=== PATIENT | male | born 1960 | race Caucasian/White ===

== ENCOUNTER 2016-12-09 23:52 | Emergency (ER) | payer MEDICAID ==
[~2016-12-09 23:52] MED LIST: ATIVAN2 MG PO; BUSPAR5 MG; COL100 PO; EFFEXOR-XR75 MG PO; THO50; VIS25 PO; ZES20 PO
[2016-12-10 00:45] LABS: BASOPHIL % 0.5 % (0-2); PLATELET COUNT 258 x10^3mcL (130-400); RED CELL DISTRIBUTION WIDTH 13.1 % (11.5-14.5)
[2016-12-10 00:57] LABS: CARBON DIOXIDE 29.9 mmol/L (21-32); CHLORIDE SERUM 103 mmol/L (98-107); CREATININE SERUM 0.7 mg/dL (0.7-1.3); GFR1 > 60 mL/min; GLUCOSE SERUM 118 mg/dL (74-106); SODIUM SERUM 138 mmol/L (136-145)
[2016-12-10 01:02] LABS: ALBUMIN 3.7 g/dL (3.4-5.0); ALKALINE PHOSPHATASE 137 U/L (46-116); ALT/SGPT 25 U/L (16-63); AST/SGOT 21 U/L (15-37); BILIRUBIN TOTAL 0.2 mg/dL (0.20-1.00); LIPASE 244 IU/L (73-393); TOTAL PROTEIN, SERUM 7.3 g/dL (6.4-8.2)
[2016-12-10 01:14] LABS: microscopic required? NO
[2016-12-10 01:23] LABS: urine erythrocyte NEGATIVE (NEGATIVE)
[2016-12-10 01:47] LABS: AMPHETAMINE QUAL UR POSITIVE (NEG <=1000)
[2016-12-10 04:11] VITALS: BP 139/79
== END 2016-12-10 04:11 | disposition home or self-care (01) ==
LOC: ED 23:52
PROVIDERS: Emergency Medicine
DX: K86.9 Disease of pancreas, unspecified (principal); K59.00 Constipation, unspecified; I10 Essential (primary) hypertension; E11.9 Type 2 diabetes mellitus without complications; R19.7 Diarrhea, unspecified; F15.10 Other stimulant abuse, uncomplicated; Z79.899 Other long term (current) drug therapy
CPT/HCPCS: 80307; J2270; J7030

== ENCOUNTER 2016-12-14 15:46 | Emergency (ER) | payer MEDICAID ==
[2016-12-14 16:43] VITALS: BP 136/89
[2016-12-14 16:53] LABS: BASOPHIL % 0.3 % (0-2); PLATELET COUNT 261 x10^3mcL (130-400); RED CELL DISTRIBUTION WIDTH 13.2 % (11.5-14.5)
[2016-12-14 17:10] LABS: CALCIUM 9.1 mg/dL (8.5-10.1); CARBON DIOXIDE 27.9 mmol/L (21-32); CHLORIDE SERUM 103 mmol/L (98-107); CREATININE SERUM 0.7 mg/dL (0.7-1.3); GFR1 > 60 mL/min; GLUCOSE SERUM 128 mg/dL (74-106); POTASSIUM SERUM 4.3 mmol/L (3.5-5.1); SODIUM SERUM 137 mmol/L (136-145)
[2016-12-14 17:12] LABS: ALKALINE PHOSPHATASE 138 U/L (46-116); ALT/SGPT 28 U/L (16-63); AST/SGOT 20 U/L (15-37); BILIRUBIN TOTAL 0.36 mg/dL (0.20-1.00); LIPASE 97 IU/L (73-393)
== END 2016-12-14 18:15 | disposition home or self-care (01) ==
LOC: ED 15:46
PROVIDERS: Emergency Medicine
DX: K29.70 Gastritis, unspecified, without bleeding (principal); F20.9 Schizophrenia, unspecified; F41.9 Anxiety disorder, unspecified; F32.9 Major depressive disorder, single episode, unspecified; I10 Essential (primary) hypertension; F15.10 Other stimulant abuse, uncomplicated
CPT/HCPCS: 83880; Q0092

== ENCOUNTER 2016-12-18 22:04 | Emergency (ER) | payer MEDICAID ==
[2016-12-18 22:47] LABS: BASOPHIL % 0.5 % (0-2); PLATELET COUNT 181 x10^3mcL (130-400); RED CELL DISTRIBUTION WIDTH 12.7 % (11.5-14.5)
[2016-12-18 23:01] LABS: CALCIUM 9.2 mg/dL (8.5-10.1); CARBON DIOXIDE 26.1 mmol/L (21-32); CHLORIDE SERUM 103 mmol/L (98-107); CREATININE SERUM 0.8 mg/dL (0.7-1.3); GFR1 > 60 mL/min; GLUCOSE SERUM 177 mg/dL (74-106); POTASSIUM SERUM 3.3 mmol/L (3.5-5.1); SODIUM SERUM 138 mmol/L (136-145)
[2016-12-18 23:34] LABS: AMPHETAMINE QUAL UR POSITIVE (NEG <=1000)
[2016-12-19 01:04] VITALS: BP 113/65
== END 2016-12-19 01:04 | disposition home or self-care (01) ==
LOC: ED 22:04
PROVIDERS: Emergency Medicine
DX: M79.1 Myalgia (principal); F15.10 Other stimulant abuse, uncomplicated; G82.20 Paraplegia, unspecified; B19.20 Unspecified viral hepatitis C without hepatic coma
CPT/HCPCS: 80307; G0480; J1885; J7030

== ENCOUNTER 2017-01-17 15:02 | Emergency (ER) | payer MEDICAID ==
[~2017-01-17] VITALS: Ht 177.8 cm; Wt 90.7 kg
[2017-01-17 16:07] VITALS: BP 129/65
== END 2017-01-17 19:00 | disposition home or self-care (01) ==
LOC: ED 15:02
DX: Z00.01 Encounter for general adult medical examination with abnormal findings (principal); F41.9 Anxiety disorder, unspecified; Z79.899 Other long term (current) drug therapy

== ENCOUNTER 2017-02-16 13:41 | Emergency (ER) | payer MEDICAID ==
[~2017-02-16] VITALS: Ht 175.3 cm; Wt 81.6 kg
[2017-02-16 14:57] LABS: BASOPHIL % 1.5 % (0-2); PLATELET COUNT 263 x10^3mcL (130-400); RED CELL DISTRIBUTION WIDTH 12.1 % (11.5-14.5)
[2017-02-16 15:12] LABS: CALCIUM 9.4 mg/dL (8.5-10.1); CARBON DIOXIDE 24.2 mmol/L (21-32); CHLORIDE SERUM 102 mmol/L (98-107); CREATININE SERUM 0.7 mg/dL (0.7-1.3); GFR1 > 60 mL/min; GLUCOSE SERUM 120 mg/dL (74-106); POTASSIUM SERUM 4.2 mmol/L (3.5-5.1); SODIUM SERUM 138 mmol/L (136-145)
[2017-02-16 15:16] LABS: ALBUMIN 3.8 g/dL (3.4-5.0); ALKALINE PHOSPHATASE 138 U/L (46-116); ALT/SGPT 47 U/L (16-63); AST/SGOT 53 U/L (15-37); BILIRUBIN TOTAL 0.28 mg/dL (0.20-1.00); TOTAL PROTEIN, SERUM 8.2 g/dL (6.4-8.2)
[2017-02-16 16:24] LABS: AMPHETAMINE QUAL UR NONE DETECTED (NEG <=1000)
[2017-02-16 16:42] VITALS: BP 136/58
== END 2017-02-16 16:42 | disposition home or self-care (01) ==
LOC: ED 13:41
PROVIDERS: Emergency Medicine
DX: T42.6X1A Poisoning by other antiepileptic and sedative-hypnotic drugs, accidental (unintentional), initial encounter (principal); B19.20 Unspecified viral hepatitis C without hepatic coma; F15.10 Other stimulant abuse, uncomplicated; F20.9 Schizophrenia, unspecified; Y92.89 Other specified places as the place of occurrence of the external cause
CPT/HCPCS: 36415; G0480

== ENCOUNTER 2017-04-27 02:37 | Inpatient (IN) | payer MEDICAID ==
[~2017-04-27] VITALS: Ht 175.3 cm; Wt 81.7 kg
--- NOTE | 2017-04-27 06:25 | NUR ---
RECEIVED PATIENT FROM ED VIA GUERSILVIO, PATIENT A/O X 1, IV ACCESS TO LFA WNL, ORIENTED PATIENT TO ROOM AND SURROUNDINGS, BED IN LOW POSITION, BED RAILS UP X 2, CALL LIGHT WITHIN REACH, WILL CONTINUE TO MONITOR
[2017-04-27 10:13] VITALS: BP 140/75
--- NOTE | 2017-04-27 10:39 | NUR ---
PT RECEIVED FROM WILDA DENTON, WILL ASSUME CARE OF PT.
--- NOTE | 2017-04-27 11:31 | NUR ---
PT ENDORSED TO [place].
--- NOTE | 2017-04-27 12:21 | NUR ---
IV ACCESS OBSTRUCTED TO LAC. IV RESTARTED TO RFA #20 PT TOLERATED PROCEDURE WELL.
--- NOTE | 2017-04-27 12:36 | NUR ---
PT C/O AGITATION MEDICATED PER EMAR. PT TOLERATED WELL. WILL CONTINUE TO MONITOR.
--- NOTE | 2017-04-27 12:38 | NUR ---
PT TRANSFERRED FROM RM 220 TO [id number]. WILL CONTINUE TO MONITOR.
--- NOTE | 2017-04-27 13:20 | NUR ---
LAC IV CATHETER REMOVED. CATHETER INTACT.
[2017-04-27 14:10] LABS: T3 TOTAL 1.61 ng/mL
[2017-04-27 14:21] LABS: UA SPECIFIC GRAVITY 1.015 (1.005-1.035)
[2017-04-27 14:22] LABS: microscopic required? YES
[2017-04-27 14:23] LABS: urine erythrocyte TRACE (NEGATIVE)
[2017-04-27 14:31] LABS: AMPHETAMINE QUAL UR POSITIVE (NEG <=1000)
[2017-04-27 14:34] LABS: CARBON DIOXIDE 22 mmol/L (21-32); CHLORIDE SERUM 106 mmol/L (98-107); CREATININE SERUM 0.8 mg/dL (0.7-1.3); GFR1 > 60 mL/min; GLUCOSE SERUM 124 mg/dL (74-106); POTASSIUM SERUM 3.3 mmol/L (3.5-5.1); SODIUM SERUM 140 mmol/L (136-145); TOTAL PROTEIN, SERUM 7.4 g/dL (6.4-8.2)
[2017-04-27 14:35] LABS: ALBUMIN 3.5 g/dL (3.4-5.0); ALT/SGPT 27 U/L (16-63); AST/SGOT 21 U/L (15-37); BILIRUBIN DIRECT 0.08 mg/dL (0.0-0.2); CALCIUM 8.9 mg/dL (8.5-10.1)
[2017-04-27 14:36] LABS: ALKALINE PHOSPHATASE 119 U/L (46-116)
[2017-04-27 14:39] LABS: RED CELL DISTRIBUTION WIDTH 14.6 % (11.5-14.5)
[2017-04-27 14:40] LABS: BASOPHIL % 0.6 % (0-2); PLATELET COUNT 270 x10^3mcL (130-400)
[2017-04-27 14:42] LABS: FREE T4 1.14 ng/dL (0.76-1.46); FREE THYROXINE INDEX 2.8 ug/dL (1.4-4.5); T4(THYROXINE) 7.9 ug/dL (4.7-13.3)
--- NOTE | 2017-04-27 18:00 | NUR ---
PT C/O NECK PAIN AND PAIN AT ARMS, PT STATES FEELING CONFUSED, PT ORIENTED TO PERSON, PLACE, , REASON FOR VISIT. MEDICATED PER EMAR. PT TOLERATED WELL. CALL LIGHT WITHIN REACH.
[2017-04-27 18:02] VITALS: BP 121/64
--- NOTE | 2017-04-27 19:40 | NUR ---
PT RESTING IN BED WITH EYES CLOSED. AROUSED WHEN WITH VERBAL AND TACTILE STIMULI. AOX4. VERBAL WITH SLIGHTLY SLURRED SPEECH. NO S/S OF RESPIRATORY DISTRESS NOTED. ON ROOM AIR. LUNGS CLEAR BILATERALLY. ON TELE 23, NSR. ABD SOFT AND FLAT. BOWEL SOUNDS ACTIVE. IV TO RIGHT FA PATENT AND INTACT. IV NS INFUSING WELL. NO S/S OF INFECTION NOTED. RESTING WITH RELAXED FACIAL FEATURES. CALL LIGHT WITHIN REACH. WILL CONTINUE TO MONITOR.
[2017-04-27 21:07] VITALS: BP 116/69
--- NOTE | 2017-04-28 01:00 | NUR ---
PT RESTING IN BED WITH EYES CLOSED. BREATHING EQUAL AND UNLABORED. NO S/S OF RESPIRATORY DISTRESS NOTED. IV PATENT AND INFUSING WELL. NO AGITATION OR BEHAVIORS NOTED AT THIS TIME. RESTING WITH RELAXED FACIAL FEATURES. CALL LIGHT WITHIN REACH. WILL CONTINUE TO MONITOR.
[2017-04-28 05:15] VITALS: BP 104/65
--- NOTE | 2017-04-28 06:00 | NUR ---
PT SLEPT WELL THROUGH THE NIGHT. APPEARS DROWSY, BUT AROUSABLE. RECEIVED ROUTINE ATIVAN 1 MG PO. NO S/S OF DISTRESS NOTED AT THIS TIME. IV PATENT AND INFUSING WELL. CALL LIGHT WITHIN REACH. WILL CONTINUE TO MONITOR.
[2017-04-28 06:33] LABS: BASOPHIL % 0.7 % (0-2); PLATELET COUNT 269 x10^3mcL (130-400)
[2017-04-28 06:40] LABS: CALCIUM 8.8 mg/dL (8.5-10.1); CARBON DIOXIDE 22.7 mmol/L (21-32); CHLORIDE SERUM 106 mmol/L (98-107); CREATININE SERUM 0.6 mg/dL (0.7-1.3); GFR1 > 60 mL/min; GLUCOSE SERUM 103 mg/dL (74-106); MAGNESIUM 2.3 mg/dL (1.8-2.4); PHOSPHOROUS 3.5 mg/dL (2.5-4.9); POTASSIUM SERUM 3.8 mmol/L (3.5-5.1); SODIUM SERUM 137 mmol/L (136-145)
[2017-04-28 06:44] LABS: RED CELL DISTRIBUTION WIDTH 14.7 % (11.5-14.5)
--- NOTE | 2017-04-28 08:00 | NUR ---
PATIENT RECEIVED SLEEPING AT THIS TIME. LUNGS ARE DIMINISHED BUT CLEAR AND NOTED HISTORY OF SMOKING BUT NO COUGH OR RALES HEARD. PATIENT AHS BEEN ON BEDREST AND NTOED PARAPLEGIC AND HAS A WHEELCHAIR IN THE RESTROOM FROM HOME. VITALS AT THIS TIME AT 97.5, 75, 20, 104/65, 98%. WILL CONTINUE TO MONITOR IDNICATED. PATIENT HAS BEEN SLEEPING BUT IS ARROUSABLE.
--- NOTE | 2017-04-28 09:30 | NUR ---
SEEN BY THE INTERNS AND RESIDENT AND PLAN OF CARE DISCUSSED. ONE TO ONE SITTER AT BEDSIDE AND PATIENT HAS BEEN SO FAR COOPERATIVE WITH CARE. PATIENT THOUGH REFUSED BATHING OR CHANGING OF LINENS DISPITE SOILING SEVERAL TIME TODAY AND LAST NIGHT. PATIENT HAS BEEN SLEEPING MOST OF THE TIME ON THIS SHIFT.
[2017-04-28 10:57] VITALS: BP 105/67
--- NOTE | 2017-04-28 11:59 | NUR ---
GAVE MORPHINE FOR PAIN ADN THE PAITENT INDICATED HE DOES NOT FEEL IT YET AND WAS JUST GIVEN. PATIEN TAS SEEN BY THE INTERNS AND THE FACILITIES ASSISTANT REQUESTED TO GVIEN TYLNENOL FOR THE HEADACHE. WHEN OFFERED THE PATIENT REFUSED. WILL CONTINUE TO MONITOR INDICATED.
--- NOTE | 2017-04-28 12:31 | NUR ---
BLOOD SUGAR AT THIS TIME AT 110. PATIENT AGAIN REFUSED THE TYLENOL WHEN OFFERED. "I DOESN'T DO ANYTHING."
--- NOTE | 2017-04-28 13:37 | NUR ---
TOOK THE BLOOD SUGAR AND OFFERED AGAIN THE TYLENOL AND THE LACTINEX AND HE REFUSED BOTH AT THIS TIME. DID THOUGH APPLY THE NICODERM PATCH. PATIENT JUST MUBBLED AND TURNED OVER AND WENT BACK TO SLEEP. DOES NOT APPEAR TO BE IN ANY PAITN AT THIS TIME.
[2017-04-28 14:10] VITALS: BP 104/64
--- NOTE | 2017-04-28 15:01 | NUR ---
PATIENT GIVEN P0 ATIVAN AND IV MORPHINE ORDERED. PATIENT DENIES PULLING OUT HIS IV THE NURSE WAS INFORMED BY THE SUPERVISOR COIN MACHINE. PATIENT HAS AN IV THAT IS FLUSHING WELL AND NO SIGNS OF INFILTRATE NOTED. PATIENT IS ANXIOUS AND AGITATED AT TIME AND STATES HE DID NOT WANT TYLENOL FOR HEADACHE IT IS MORE THAN THAT AND THERE IS PAIN TO THE SHOULDERS AND WELL. PATIETN AND NURSE DISCUSSED PLAN OF CARE AND PATIENT IS CALM AND COOPERATIVE AT THIS TIME.
--- NOTE | 2017-04-28 19:40 | NUR ---
RECEIVED REPORT FROM DAY SHIFT RN. PT SITTING UP IN BED. IV ON RFA, NS INFUSING. C/O BACK, NECK, HIP PAIN. WILL MEDICATE PER ORDER. DEPRESSED MOOD AND SLURRED SPEECH. PT REPORTS THOUGHTS OF HURTING HIMSELF. ON 5150 HOLD AT THIS TIME. SITTER AT BEDSIDE. SIDE RAIL PADS IN PLACE. MOTHER AT BEDSIDE.
[2017-04-28 23:13] VITALS: BP 92/51
[2017-04-29 06:14] VITALS: BP 122/75
[2017-04-29 06:17] VITALS: BP 97/45
--- NOTE | 2017-04-29 07:00 | NUR ---
PT SLEPT AT LONG INTERVALS DURING SHIFT. C/O BACK/NECK/HIPS PAIN X3, MEDICATED WITH MORPHINE. SCHEDULED ATIVAN GIVEN PER ORDER. SAFETY MEASURES MAINTAINED. SITTER AT BEDSIDE. WILL ENDORSE CONTINUITY OF CARE TO ONCOMING RN.
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
[2017-04-29 11:11] VITALS: BP 99/59
--- NOTE | 2017-04-29 11:30 | NUR ---
REQUESTED PAIN MEDICATION AND GAVE MORPHINE ORDERED. PATIENT IS SLEEPING MOST OF THE SHIFT AND AWAKE TO REQUEST PAIN MEDICATION FOR THE SHOULDERS AND BACK.
--- NOTE | 2017-04-29 15:00 | NUR ---
BLOOD SUGAR AT LUNCH IS WNL AND PATIENT RECIEVED THE MORPHINE AND EFFECTIVE AT THIS TIME. WILL CONTINUE TO MONITOR.
--- NOTE | 2017-04-29 16:30 | NUR ---
GAVE MORPHINE ORDERED FOR PAIN. ONE TO ONE AT BEDSIDE AND PATIENT IS NOT AGRESS OR DELUSIONAL AT THIS TIME. HE HAS BEEN COOPERATIVE SO FAR TODAY.
--- NOTE | 2017-04-29 19:28 | NUR ---
PATIENT GIVEN MORPHINE FOR PAIN PER REQUEST FOR PAIN TO THE SHOULDERS AND BACK. PATIENT HAS CONTINUED ON ONE TO ONE SITTER FOR 5150 DIAGNOSIS.
--- NOTE | 2017-04-29 19:40 | NUR ---
RECEIVED REPORT FROM DAY SHIFT RN. PT RESTING WITH EYES CLOSED. NO DISTRESS NOTED. IV ON RFA, NS INFUSING. BED IN LOWEST POSITION. SIDE RAIL PADS IN PLACE. GARBLED SPEECH. DEPRESSED MOOD. ON 5150 HOLD AT THIS TIME. SITTER AT BEDSIDE.
[2017-04-29 20:31] VITALS: BP 122/71
[2017-04-30 05:22] VITALS: BP 122/71
--- NOTE | 2017-04-30 06:33 | NUR ---
PT SLEPT ON AND OFF DURING SHIFT. C/O NECK AND HIP PAIN X3. MORPHINE GIVEN. SAFETY MEASURES MAINTAINED. ALL NEEDS ATTENDED TO. SITTER AT BEDSIDE. WILL ENDORSE CONINUITY OF CARE TO ONCOMING RN.
[2017-04-30 10:01] VITALS: BP 114/71
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
--- NOTE | 2017-04-30 10:25 | NUR ---
SEEN BY THE INTERNS AND PLAN IS FOR REEVALUATION OF THE PATIENT FOR 5150 AND THEN POSSIBLE DISCHARGE PLAN IF HE MEETS THE CRITERIA FOR SAFETY.
[2017-04-30 13:10] VITALS: BP 115/71
--- NOTE | 2017-04-30 14:13 | NUR ---
IV LEAKING AND WILL RESTART INDICATE.D PATIEN HAD GOOD RELIEF FROM THE MORPHINE GIVEN. FOR ROCEPHIN ORDERED.
--- NOTE | 2017-04-30 14:44 | NUR ---
SEEN BY THE [facility] DOCTOR AND PATIENT PER THE DOCTOR IS REFUSING TO DISCUSS WITH HER HIS ISSUES. PATIENT HAD IV MORPHINE GIVEN POST RESTART OF THE PERVIOUS IV DUE TO LEAKING. PATIENT HAS HAD HIS MOTHER AT BEDSIDE AND DID NOT SHOW THIS STAFF AGITATION BUT PER THE PSYCH DOCTOR HE BECAME AGITATED WITH HER QUESTIONING. WILL CONTINUE TO MONITOR BUT DID PER THE DR STATE HE CAN NOT [place] NOT TO HARM HIMSELF IF DISCHARGED TO HOME TODAY.
--- NOTE | 2017-04-30 17:44 | NUR ---
GAVE PAIN MEDICATION ORDERED AND BLOOD SUGAR AT 127 AND NO COVERAGE INDICATED.
--- NOTE | 2017-04-30 19:40 | NUR ---
RECEIVED REPORT FROM DAY SHIFT RN. PT SITTING UP IN BED. IV ON LEFT WRIST, NS INFUSING. PT DENIES HAVING HALLUCINATIONS. PT DENIES HAVING THOUGHTS OF HARMING SELF OR OTHERS. NO DISTRESS NOTED AT THIS TIME. PT TOLERATING TRANSFER FROM BED TO BEDSIDE COMMODE. SAFETY MEASURES IN PLACE. BED IN LOWEST POSITION. SIDE RAIL PADS IN PLACE. SITTER AT BEDSIDE.
[2017-04-30 20:52] VITALS: BP 116/70
[2017-05-01 05:37] VITALS: BP 103/65
[2017-05-01 06:41] LABS: BASOPHIL % 0.5 % (0-2); CALCIUM 8.8 mg/dL (8.5-10.1); CARBON DIOXIDE 21.6 mmol/L (21-32); CHLORIDE SERUM 106 mmol/L (98-107); CREATININE SERUM 0.7 mg/dL (0.7-1.3); GFR1 > 60 mL/min; GLUCOSE SERUM 114 mg/dL (74-106); PLATELET COUNT 243 x10^3mcL (130-400); POTASSIUM SERUM 3.7 mmol/L (3.5-5.1); SODIUM SERUM 139 mmol/L (136-145)
[2017-05-01 06:52] LABS: RED CELL DISTRIBUTION WIDTH 14.6 % (11.5-14.5)
--- NOTE | 2017-05-01 06:57 | NUR ---
PT SLEPT AT LONG INTERVALS DURING SHIFT. C/O NECK AND HIP PAIN X3, MORPHINE GIVEN. SAFETY MEASURES MAINTAINED. SITTER AT BEDSIDE.
--- NOTE | 2017-05-01 07:58 | NUR ---
PT RECEIVED DURING CHANGE OF SHIFT, ASLEEP BUT AROUSABLE, REPORTS OF SLURRED SPEECH, TELE 23, NSR, PULSES PRESENT, NO EDEMA, LUNGS CTA ON RA, BREATHING EVEN AND UNLABORED, BOWEL SOUNDS ACTIVE, BEDSIDE COMMODE, ABLE TO VOID, GENERALIZED WEAKNESS, PARAPLEGIC, SKIN WARM DRY INTACT, NO INDICATION OF PAIN AT THIS TIME, IV TO LT WRIST INFUSING NS AT 42ML/HR, CALL LIGHT WITHIN REACH, WAREHOUSE EXAMINER AT BEDSIDE, WILL CONTINUE TO MONITOR.
--- NOTE | 2017-05-01 08:57 | NUR ---
ASLEEP, NO INDICATION OF PAIN, BREATHING EVEN AND UNLABORED, CALL LIGHT WITHIN REACH, DEFECT CUTTER PAT AT BEDSIDE TO ASSIST WITH ADL'S, WILL CONTINUE TO MONITOR.
[2017-05-01 09:30] VITALS: BP 113/70
--- NOTE | 2017-05-01 10:22 | NUR ---
PT ASLEEP, NO INDICATION OF PAIN, BREATHING EVEN AND UNLABORED, DIRECTOR OF PLAYER PERSONNEL AT BEDSIDE TO ASSIST WITH ADL'S, CALL LIGHT WITHIN REACH, WILL CONTINUE TO MONITOR.
--- NOTE | 2017-05-01 11:16 | NUR ---
PT ASLEEP BUT AROUSABLE, DENIES SOB, DENIES PAIN, PLASTIC MOLDER AT BEDSIDE TO ASSIST WITH ADL'S, CALL LIGHT WITHIN REACH, WILL CONTINUE TO MONITOR.
--- NOTE | 2017-05-01 12:31 | NUR ---
PT C/O SHOULDER BUE AND RLE PAIN 04/20, WILL MEDICATE PER EMAR, DENIES SOB, BREATHING EVEN AND UNLABORED, CALL LIGHT WITHIN REACH, PASSENGER RATE CLERK AT BEDSIDE TO ASSIST WITH ADL'S, WILL CONTINUE TO MONITOR.
--- NOTE | 2017-05-01 13:12 | NUR ---
PT DENIES SOB, STATES PAIN IS TOLERABLE, STATES MEDICATION EFFECTIVE, EATING LUNCH, CALL LIGHT WITHIN REACH, MOTHER AT BEDSIDE, COUNTER CLERK AT BEDSIDE ASSISTING WITH ADL'S, WILL CONTINUE TO MONITOR.
--- NOTE | 2017-05-01 14:10 | NUR ---
PT DENIES SOB, STATES PAIN IS CURRENTLY TOLERABLE, CALL LIGHT WITHIN REACH, VISITOR AT BEDSIDE, FIELD ACCOUNT MANAGER AT BEDSIDE TO ASSIST WITH ADL'S, CALL LIGHT WITHIN REACH, WILL CONTINUE TO MONITOR.
--- NOTE | 2017-05-01 15:19 | NUR ---
PT C/O MARCIA SHOULDER PAIN, WILL MEDICATE PER EMAR, DENIES SOB, CALL LIGHT WITHIN REACH, EMERGENCY TELECOMMUNICATIONS DISPATCHER AT BEDSIDE, WILL CONTINUE TO MONITOR.
--- NOTE | 2017-05-01 16:33 | NUR ---
PT C/O PAIN, STATES HE WANTS TO SPEAK TO HIS DOCTOR, PT NOTIFIED HE IS CURRENTLY UNABLE TO LEAVE AND NEEDS TO BE CLEARED FIRST, STATES THAT THE DOCTOR SHOULD MANAGE HIS PAIN BETTER, CALL LIGHT WITHIN REACH, PULMONARY FUNCTION TECHNOLOGIST AT BEDSIDE, WILL CONTINUE TO MONITOR.
--- NOTE | 2017-05-01 17:28 | NUR ---
BS 151, PT REFUSED INSULIN, DENIES SOB, DEMANDING TO SPEAK TO HIS DR, REMOVED OWN IV, CALL LIGHT WITHIN REACH, FINANCIAL RESERVE CLERK AT BEDSIDE, MOTHER AT BEDSIDE, WILL CONTINUE TO MONITOR.
--- NOTE | 2017-05-01 18:01 | NUR ---
PT DRESSED IN STREET CLOTHES, LEARNING DESIGN SPECIALIST AT BEDSIDE, PT'S MOTHER AT BEDSIDE, CALL LIGHT WITHIN REACH, WILL ENDORSE PT TO NEXT SHIFT.
--- NOTE | 2017-05-01 19:10 | NUR ---
PT RECEIVED FROM AM NURSE. PT A/O X3, WITH SLURRED SPEECH. MED-SURG, NO TELE, DENIES CHEST PAIN. PULSES PALPABLE, NO EDEMA NOTED. LUNG SOUNDS CTA, ON RA, DENIES SOB. ABD SOFT AND NONDISTENDED, BOWEL SOUNDS ACTIVE IN X4 QUAD, LBM-04/29. GENERALIZED WEAKNESS, PT IS PARAPLEGIC. SKIN IS INTACT. PT COMPLAINING OF 8/10 PAIN TO RIGHT HIP, SHOULDERS, AND HEAD. PT PULLED OUT IV DURING DAYSHIFT, PT HAS NO IV ACCESS AT THIS TIME. PT APPEARS SLIGHTLY AGITATED AND IS DRESSED IN HIS STREET CLOTHES. BED IN LOWEST SETTING, SIDE RAILS UP X2, CALL LIGHT WITHIN REACH. WILL CONTINUE TO MONITOR.
--- NOTE | 2017-05-01 20:15 | NUR ---
NEW IV INSERTED BY RESOURCE NURSE TO RIGHT THUMB, 22G, PATENT AND INTACT. PT TOLERATED WELL.
--- NOTE | 2017-05-01 20:28 | NUR ---
PT COMPLAINING OF 8/10 PAIN TO RIGHT HIP, SHOULDERS, AND HEAD. ADMINISTERED NORCO ORDERED. WILL MONITOR FOR PAIN RELIEF.
--- NOTE | 2017-05-01 22:58 | NUR ---
PT COMPLAINING OF CONTINUED 8/10 PAIN TO RIGHT HIP, SHOULDERS, AND PAIN. NOTIFIED DR PIERRE. ADMINISTERED PERCOCET ORDERED.
[2017-05-01 22:59] VITALS: BP 109/57
--- NOTE | 2017-05-02 01:44 | NUR ---
PT ASLEEP IN BED AT THIS TIME WITH SITTER AT BEDSIDE. BREATHING IS EVEN AND UNLABORED, NO DISTRESS NOTED, NO SIGNS OF PAIN OBSERVED. WILL CONTINUE TO MONITOR.
--- NOTE | 2017-05-02 03:24 | NUR ---
PT COMPLAINING OF 9/10 PAIN TO RIGHT HIP AND SHOULDERS. OFFERED PT NORCO, PT REFUSED NORCO. PT APPEARS AGITATED, PT REFUSED ATIVAN AT THIS TIME. PT REQUESTING TO SPEAK TO . NOTIFIED DR ARAUJO. DR ARAUJO AT BEDSIDE. AWAITING NEW ORDERS.
--- NOTE | 2017-05-02 06:30 | NUR ---
PT SLEPT AT INTERVALS THROUGHOUT THE NIGHT. PT HAD A FEW EPISODES OF PAIN AND APPEARED AGITATED AT TIMES. PT STATES, "I DON'T KNOW WHY THEY ARE GIVING ME MEDICATIONS THAT AREN'T HELPING MY PAIN." SITTER AT BEDSIDE. SALINE LOCK TO RIGHT THUMB, PATENT AND INTACT. WILL ENDORSE CARE TO AM NURSE.
[2017-05-02 06:49] LABS: BASOPHIL % 0.4 % (0-2); PLATELET COUNT 220 x10^3mcL (130-400); RED CELL DISTRIBUTION WIDTH 14.3 % (11.5-14.5)
[2017-05-02 06:53] LABS: CALCIUM 8.7 mg/dL (8.5-10.1); CARBON DIOXIDE 23.3 mmol/L (21-32); CHLORIDE SERUM 107 mmol/L (98-107); CREATININE SERUM 0.7 mg/dL (0.7-1.3); GFR1 > 60 mL/min; GLUCOSE SERUM 103 mg/dL (74-106); MAGNESIUM 2.1 mg/dL (1.8-2.4); PHOSPHOROUS 4.8 mg/dL (2.5-4.9); POTASSIUM SERUM 4.1 mmol/L (3.5-5.1); SODIUM SERUM 137 mmol/L (136-145)
--- NOTE | 2017-05-02 08:35 | NUR ---
PT STATES HE HAS BEEN ADVANCED ON PAIN MEDICATION BUT IS ONLY EFFECTIVE FOR LIMITED TIME, CALL LIGHT WITHIN REACH, PUMPER HELPER AT BEDSIDE, CALL LIGHT WITHIN REACH, WILL CONTINUE TO MONITOR.
--- NOTE | 2017-05-02 09:00 | NUR ---
DR. JIMENEZ AND RESIDENTS MAKING ROUNDS, PLAN OF CARE DISCUSSED.
[2017-05-02 09:05] VITALS: BP 101/67
--- NOTE | 2017-05-02 09:12 | NUR ---
PT ASLEEP, NO INDICATION OF PAIN, BREATHING EVEN AND UNLABORED, CALL LIGHT WITHIN REACH, WILL CONTINUE TO MONITOR.
--- NOTE | 2017-05-02 09:23 | NUR ---
PT RECEIVED DURING CHANGE OF SHIFT, A/OX3, SLURRED SPEECH NOTED, NO TELE, DENIES CHEST PAIN, PULSES PRESENT, NO EDEMA PRESENT, LUNGS CTA ON RA, BOWEL SOUNDS ACTIVE, LBM 04/29/17, DENIES N/V/D, ABLE TO VOID USING URINAL, GENERALIZED WEAKNESS, PARAPLEGIC, SKIN WARM DRY INTACT, RECENTLY MEDICATED FOR PAIN BY PRIOR RN, IV TO RIGHT THUMB, PATENT, INTACT, CALL LIGHT WITHIN REACH, ROCK MASON AT BEDSIDE, CALL LIGHT WITHIN REACH, WILL CONTINUE TO MONITOR.
--- NOTE | 2017-05-02 10:28 | NUR ---
PT ASLEEP, NO INDICATION OF PAIN, BREATHING EVEN AND UNLABORED, CALL LIGHT WITHIN REACH, WILL CONTINUE TO MONITOR.
--- NOTE | 2017-05-02 11:25 | NUR ---
PT C/O RIGHT HIP PAIN 04/20, WILL MEDICATE PER EMAR, DENIES SOB, BREATHING EVEN AND UNLABORED, CALL LIGHT WITHIN REACH, WILL CONTINUE TO MONITOR.
--- NOTE | 2017-05-02 12:01 | NUR ---
PT DENIES SOB, C/O RIGHT HIP PAIN 04/20, MEDICATED PER EMAR, PRE CERTIFICATION SPECIALIST AT BEDSIDE, CALL LIGHT WITHIN REACH, WILL CONTINUE TO MONITOR.
--- NOTE | 2017-05-02 13:11 | NUR ---
PT DENIES SOB, CURRENTLY DENIES PAIN, MEDICATION GIVEN, CALL LIGHT WITHIN REACH, RACE STARTER AT BEDSIDE, WILL CONTINUE TO MONITOR.
--- NOTE | 2017-05-02 14:21 | NUR ---
PT DENIES SOB, DENIES PAIN, CALL LIGHT WITHIN REACH, INNER LAYER SCRUBBER TENDER AT BEDSIDE, WILL CONTINUE TO MONITOR.
--- NOTE | 2017-05-02 15:08 | NUR ---
PT ASLEEP, NO INDICATION OF PAIN, BREATHING EVEN AND UNLABORED, CALL LIGHT WITHIN REACH, OUTPATIENT PHARMACY MANAGER AT BEDSIDE, WILL CONTINUE TO MONITOR.
[2017-05-02 16:09] VITALS: BP 122/73
--- NOTE | 2017-05-02 16:23 | NUR ---
PT DENIES SOB, C/O PAIN 04/20 IN RIGHT HIP, WILL MEDICATE PER EMAR, BS 122 NO COVERAGE NEEDED, CALL LIGHT WITHIN REACH, PILLOWCASE CUTTER AT BEDSIDE, WILL CONTINUE TO MONITOR.
--- NOTE | 2017-05-02 17:08 | NUR ---
PT DENIES SOB, DENIES PAIN, MOTHER AT BEDSIDE, DENTURE TECHNICIAN AT BEDSIDE, CALL LIGHT WITHIN REACH, WILL CONTINUE TO MONITOR.
--- NOTE | 2017-05-02 18:29 | NUR ---
PT DENIES SOB, DENIES PAIN, CALL LIGHT WITHIN REACH, DOPE MAINTENANCE WORKER AT BEDSIDE, WILL ENDORSE PT TO NEXT SHIFT.
[2017-05-02 19:20] VITALS: BP 112/64
--- NOTE | 2017-05-02 19:20 | NUR ---
RECEIVED PT AWAKE ALERT AND VERBALLY RESPONSIVE WITH SLURRED SPEECH.DENIES CHESTPAIN AT THIS TIME.BP 112/64 MMHG,HR 81.NURSE AT BEDSIDE TO ASSIST WITH ADLS.APPEARS CALM AND COOPERATIVE WITH CARE AT THIS TIME.WILL CONTINUE TO MONITOR.
--- NOTE | 2017-05-03 04:53 | NUR ---
PT SLEPT WELL.NURSE AT BEDISDE TO ASSIST WITH ADLS.CALM ALL NIGHT.NO AGITATION NOTED.MEDICATED WITH PERCOCET 10 MG PO X2 FOR SHOULDER PAIN WITH GOOD RELIEF.ALL NEEDS MET.WILL CONTINUE TO MONITOR.
[2017-05-03 06:05] VITALS: BP 102/64
--- NOTE | 2017-05-03 07:50 | NUR ---
RECEIVED PATIENT FROM INSPECTOR WATER POLLUTION CONTROL. PT WAS ASLEEP. ASSESSED AND DOCUMENTED FINDINGS. NO DISTRESS NOTED. SAFETY PRECAUTIONS ON. WILL CONTINUE TO MONITOR.
--- NOTE | 2017-05-03 09:20 | NUR ---
AND RESIDENTS DID ROUNDS. EXPLAINED THE PLAN OF CARE.
[2017-05-03 10:09] VITALS: BP 112/68
--- NOTE | 2017-05-03 14:00 | NUR ---
CAME AND SPOKE WITH PT. HE SAID HE CLEARING PT AND HE SPOKE WITH PT'S MOTHER AND HE SAID PT'S MOTHER TOLD HIM SHE WILL TAKE THE PT HER HOME. INFORMED RESIDENT DOCTOR, CASEMANAGER AND CHARGE NURSE.
[2017-05-03] MEDS ORDERED: SEROQUEL200 MG PO (17:37)
[2017-05-03] MEDS ORDERED: BUS5 PO (17:38)
[2017-05-03 18:57] VITALS: BP 110/74
--- NOTE | 2017-05-03 19:00 | NUR ---
PATIENT IS STABLE. GAVE REPORT TO THE NEXT SHIFT NURSE.
--- NOTE | 2017-05-03 19:20 | NUR ---
RECEIVED REPORT FROM DAY SHIFT RN. PT RESTING IN BED. IV ON RFA, INTACT. INFORMED PT THAT THERE IS NO DISCHARGE ORDER FROM THE DOCTOR YET. SAFETY MEASURES IN PLACE. BED IN LOWEST POSITION. SIDE RAILS UP X2. CALL LIGHT WITHIN REACH. MOTHER AT BEDSIDE. SITTER AT BEDSIDE.
--- NOTE | 2017-05-03 21:30 | NUR ---
PT WAS TRYING TO SIT ON THE SIDE OF THE BED. AWNING MAKER WAS ASSISTING PT. PT WAS RESTLESS AND UNCOOPERATIVE WITH ASSISTANCE AND FELL ON THE FLOOR. AWNING MAKER CALLED FOR HELP. PT WAS LYING ON HIS RIGHT SIDE WHEN STAFF X2 HELPED THE PT BACK TO BED. CHARGE NURSE, WORK ORDER SORTING CLERK AND DR. ARAUJO MADE AWARE. VITAL SIGNS WERE TAKEN AND XRAY RIGHT SHOULDER AND RIGHT HIP ORDERED.
--- NOTE | 2017-05-03 23:00 | NUR ---
PT REFUSED XRAY RIGHT SHOULDER AND RIGHT HIP.
[2017-05-04 06:20] VITALS: BP 112/67
--- NOTE | 2017-05-04 06:47 | NUR ---
PT WAS RESTLESS DURING SHIFT AND STATED HAVING THOUGHTS OF HARMING SELF. C/O HIP PAIN, PERCOCET GIVEN X2 AND SCHEDULED ATIVAN. PT STATES HIP PAIN NOT RELIEVED. ICE PACK GIVEN. PT CALLED 911 X3 USING HIS PERSONAL CELLPHONE COMPLAINING ABOUT HAVING PAIN. PIERCER OPERATOR MADE AWARE THAT PT IS IN THE HOSPITAL AND WAS MADE AWARE OF PT'S COMPLAINT.
--- NOTE | 2017-05-04 06:59 | NUR ---
XRAY OF RIGHT HIP AND RIGHT SHOULDER DONE THIS MORNING.
--- NOTE | 2017-05-04 06:59 | NUR ---
PT DENIES HAVING THOUGHTS OF HARMING SELF WHEN ASKED THIS MORNING. SAFETY MEASURES MAINTAINED. CALL LIGHT WITHIN REACH. BED IN LOWEST POSITION. SIDE RAIL PADS X2. SITTER AT BEDSIDE.
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
--- NOTE | 2017-05-04 09:01 | NUR ---
INFORMED ABOUT PT REFUSED HIS SEROQUEL, EXPLAINED THE PURPOSE BUT HE STILL REFUSING.PT AWAKE,ALERT AND ORIENTED X4. ALSO INFORMED HER DC ORDER FROM LAST NIGHT STILL ACTIVE, SHE SAID SHE WILL DC THE DISCHARGE.
--- NOTE | 2017-05-04 09:08 | NUR ---
AND RESIDENTS DID ROUNDS. EXPLAINED THE PLAN OF CARE AND ANSWERED ALL PT'S QUESTIONS.
--- NOTE | 2017-05-04 09:45 | NUR ---
EXPLAINED THE PURPOSE AND IMPORTANCE OF SEROQUEL AGAIN, AFTER MULTIPLE TIME EXPLAINING, PT TOOK SEROQUEL PO.
--- NOTE | 2017-05-04 11:00 | NUR ---
PT STATED PAIN IN THE RT HIP,01/18. PERCOCET PO IS NOT DUE NOW AND PT REFUSED TO TAKE TYLENOL PO. NO OTHER PAIN MEDICINES AVAILABLE SO CALLED AND INFORMED HER ABOUT PT ASKING FOR MORE PAIN MEDICINE. SHE SAID SHE WILL TALK TO THE PT AND GIVE PERCOCET NEXT DUE TIME. INFORMED PT ABOUT THAT. PT VERBALISE UNDERSTANDS THIS TIME.
[2017-05-04 11:17] VITALS: BP 107/61
--- NOTE | 2017-05-04 11:26 | NUR ---
AWARE ABOUT RT HIP XRAY RESULT. DOCTOR CONSULTING ORTHO DOCTOR.
--- NOTE | 2017-05-04 13:45 | NUR ---
PT REQUESTING TO TALK TO THE DOCTOR.PAGED RESIDENT DOCTOR,INFORMED WHO COVERING FOR ABOUT PT WANTS TO TALK TO THE DOCTOR. HE SAID HE WILL COME AND TALK TO THE PT.
--- NOTE | 2017-05-04 13:48 | NUR ---
INFORMED PT ABOUT DOCTOR WILL COME AND TALK TO HIM.
--- NOTE | 2017-05-04 14:10 | NUR ---
SPOKE WITH PT. PT ASKED FOR MORE PAIN MEDICINE AND ASKED FOR CHANGE FRQUENCY OF PERCOCET TO Q3HR. SAID NO HE CANNOT CHANGE AND HE DIDNOT ORDER MORE PAIN MEDICINE. ORDERED CT OF RT HIP.
--- NOTE | 2017-05-04 14:38 | NUR ---
Initial Nutrition Assessment: Dx: Altered Mental Status, Urinary Tract Infection Hx: HTN, Schizophrenia, Depression, Anxiety, Polysubstance abuse, Alcoholism, tobacco use PSHx:None Labs: (05/02) B (04/28) A1c:5.7 Meds: Ativan, Colace, D50, Folic acid, Humulin, Lactinex, NS IV, Theragran, B1, Diet:CCHO PO Intake: (04/28) B:90% L:60% (04/30) B:100% L:100% (05/03) B:100% L:100% D:100% Ht: 69in,5'9 Wt: 180#,81.67kg BMI:26.6kg/m2 (overweight) IBW with adjustement for parapalegia:144-152#, 65kg-69kg %IBW:118 % UBW:180# per pt Age:57 y/o male Food Allergies:No Skin: intact Tanner:17 Edema:None GI: Last BM:04/29 Pt was admitted with toxic encephalopathy liekly 2/2 methamphetamine and opiate abuse and complicated UTI, per H&P. Per progress note 05/03, F[employer] ST[employer] INSPECTOR witnessed pt dall from seated position from bed and pt was c/o right hip/shoulder/head pain. Pt was asking for Dilauded and refusing an X-ray. Pt was also expressing SI just prior to dischage but had no plan. Pt was just cleared by psych earlier this morning. Per bed huddle this morning, Dr. Mixon to see patient today. During visit, observed pt eating lunch. Pt reports good appetite with no c/o N/V/D. Pt c/o constipation but he says it's normal due to being parapalegic. Problem with: N: No V: No D: No C:Yes, last recorded BM on 04/29. Problems with: Chewing:No Swallowing:No Current appetite: Good Recent wt change:No %wt change:0% Vitamin/Supplement use:MVI, omega-3 fatty acid and protein powder. Special diet at home: Pt reports to eating 1 big meal a day at dinner and taking protein shakes and vitamins for breakfast and protein shake for lunch. Physical activity:pt is wheelchair bound Education: RD educated pt on eating 3 balanced meals per day and the importance of including fiber due to pt c/o constipation. Estimated Nutritional Needs Based on ideal body weight [address]kg [address] adjusted IBW due to pt being parapalegic) Energy: 1625-1950kcal/d (25-30kcal/kg for adult maintenance) Protein:52-65 g/d (0.8-1.0g/kg for adult maintenance) Fluid:1911-3528 ml/d (1 ml/kcal) or per doctor Nutrition Diagnosis 1. Overweight related to pt parapalegic as evidenced by BMI:26.6kg/m2 and 118% ofIBW. Intervention 1. Recommend continue with current [facility] diet. Monitor/Evaluate Goal: PO intake at least 75% of estimated needs Monitor: PO intake, Labs, GI function F/U in7 days as low risk:05/11
--- NOTE | 2017-05-04 14:41 | NUR ---
1. Recommend continue with current [facility] diet.
--- NOTE | 2017-05-04 15:20 | NUR ---
CT CAME TO TAKE PT FOR CT SCAN. TOLD TECH TO TAKE PT BUT HE SAID PT IS IN PAIN AND HE WONT LIE DOWN PROPERLY, ALWAYS MOVE AROUND. INFORMED TECH PT ALWAYS MOVE AROUND THAT IS HIS BEHAVIOUR IF SOME ONE TELL HIM TO STAY IN THE POSITION FOR FEW MINUTE HE WOULD STAY BUT TACH NOT COMFORTABLE TO TAKE HIM NOW SO TOLD BASTING CLEANER WILL GIVE PT PAIN MEDICINE AT 1625 SO COME BACK AT 1645 TO TAKE PT DOWN FOR CT.
--- NOTE | 2017-05-04 17:30 | NUR ---
DIRECTOR PRODUCT SAFETY TOOK PT DOWN TO CT FOR CT OF [facility]IP. PT IS STABLE. DENIES PAIN THIS TIME.
[2017-05-04 17:32] VITALS: BP 119/64
--- NOTE | 2017-05-04 18:00 | NUR ---
RECEIVED PT FROM CT AFTER CT OF [facility]IP. PT STABLE.
--- NOTE | 2017-05-04 19:07 | NUR ---
PT RESTING IN BED COMFORTABLY. DENIES PAIN THIS TIME. STABLE. GAVE REPORT TO NEXT SHIFT NURSE.
--- NOTE | 2017-05-04 20:00 | NUR ---
RECEIVED REPORT FROM DAY SHIFT RN. PATIENT RESTING IN BED. NO DISTRESS NOTED. IN ON RFA, INTACT. DENIES HAVING HALLUCINATIONS. DENIES HAVING THOUGHTS OF HARMING SELF. SAFETY MEASURES IN PLACE. SITTER AT BEDSIDE. BED IN LOWEST POSITION. SIDE RAILS UP X2. CALL LIGHT WITHIN REACH. MOTHER AT BEDSIDE.
[2017-05-04 21:26] VITALS: BP 124/71
[2017-05-05 06:37] VITALS: BP 93/53
--- NOTE | 2017-05-05 07:00 | NUR ---
PT SLEPT WELL DURING SHIFT. C/O HIP PAIN, PERCOCET GIVEN X2. NO DISTRESS NOTED. SAFETY MEASURES MAINTAINED. BED IN LOWEST POSITION. SIDE RAILS UP X2. CALL LIGHT WITHIN REACH. SITTER AT BEDSIDE.
[2017-05-05 07:35] VITALS: BP 92/50
--- NOTE | 2017-05-05 07:40 | NUR ---
A/O X4. CLEAR SPEECH. UNCOOPERATIVE AT TIMES. ON MS HR 68. RADIAL AND PEDAL PULSES PALPABLE. NO EDEMA OR SWELLING NOTED. <3 SECS CAP REFILL. ON RA SAT 96%. BRAETHING EVEN AND UNLABORED. NO NVD. VOIDING ADEQUATELY. PARAPLEGIC USES WHEELCHAIR AT HOME. NO SKIN TEAR OR OPEN WOUND. DENIES PAIN AT THIS TIME. IV SITE INTACT ON RFA. SALINE LOCK. WILL CONTINUE TO MONITOR. CALL LIGHT WITHIN REACH.
--- NOTE | 2017-05-05 08:39 | NUR ---
TOOK MEDS WITHOUT DIFFICULTY. WILL CONTINUE TO MONITOR.
--- NOTE | 2017-05-05 10:36 | NUR ---
COMPLAINS OF SHARP RIGHT HIP PAIN 10/10. PERCOCET GIVEN. WILL CONTINUE TO MONITOR.
[2017-05-05 10:55] VITALS: BP 92/50
--- NOTE | 2017-05-05 12:27 | NUR ---
DC INSTRUCTIONS AND SCRIPT GIVEN. VERBALIZE UNDERSTANDING. IV SITE INTACT AND DC/D. NO TELEBOX. WILL ESCORT VIA WHEELCHAIR TO MAIN LOBBY.
== END 2017-05-05 12:38 | disposition home or self-care (01) | DRG 773 ==
LOC: ED 02:37 → MU 05:35 → DU 05:35 → MU 05-01 10:03
PROVIDERS: Family Medicine; ADMIT Family Medicine
DX: F15.10 Other stimulant abuse, uncomplicated (principal); F11.10 Opioid abuse, uncomplicated; N17.0 Acute kidney failure with tubular necrosis; G92 Toxic encephalopathy; F14.10 Cocaine abuse, uncomplicated; R45.851 Suicidal ideations; G82.20 Paraplegia, unspecified; F25.1 Schizoaffective disorder, depressive type; N39.0 Urinary tract infection, site not specified; F60.2 Antisocial personality disorder; F12.10 Cannabis abuse, uncomplicated; F10.20 Alcohol dependence, uncomplicated; F17.210 Nicotine dependence, cigarettes, uncomplicated; T14.8 Other injury of unspecified body region; E87.6 Hypokalemia; R73.03 Prediabetes; Z68.26 Body mass index [BMI] 26.0-26.9, adult; X95.9XXS Assault by unspecified firearm discharge, sequela
CPT/HCPCS: 82962; 84439; G0480; J0696; J2060; J2270; J3411; J3475; J3490; J7030; Q0092

== ENCOUNTER 2017-05-10 15:27 | Emergency (ER) | payer MEDICAID ==
[~2017-05-10 15:27] MED LIST changes: +BUS5 PO; +SEROQUEL200 MG PO
[2017-05-10 22:41] VITALS: BP 155/95
== END 2017-05-10 22:41 | disposition home or self-care (01) ==
LOC: ED 15:27
DX: F41.9 Anxiety disorder, unspecified (principal); G89.29 Other chronic pain; F20.9 Schizophrenia, unspecified; F32.9 Major depressive disorder, single episode, unspecified; G82.20 Paraplegia, unspecified; Z90.49 Acquired absence of other specified parts of digestive tract
CPT/HCPCS: J1170; J1630; J2060

== ENCOUNTER 2017-08-17 14:04 | Emergency (ER) | payer MEDICAID ==
[2017-08-17 16:31] VITALS: BP 131/84
== END 2017-08-17 16:31 | disposition home or self-care (01) ==
LOC: ED 14:04
DX: G89.29 Other chronic pain (principal); M54.9 Dorsalgia, unspecified; I10 Essential (primary) hypertension; E11.9 Type 2 diabetes mellitus without complications

== ENCOUNTER 2018-11-28 12:59 | Inpatient (IN) | payer MEDICAID ==
[~2018-11-28] VITALS: Ht 175.3 cm; Wt 81.6 kg
[2018-11-28 13:01] VITALS: Ht 175.3 cm; Wt 81.6 kg
[2018-11-28 13:52] LABS: BASOPHIL % 0.5 % (0-2); PLATELET COUNT 363 x10^3mcL (130-400); RED CELL DISTRIBUTION WIDTH 14.3 % (11.5-14.5)
[2018-11-28 14:03] LABS: CALCIUM 9.6 mg/dL (8.5-10.1); CARBON DIOXIDE 31.3 mmol/L (21-32); CHLORIDE SERUM 100 mmol/L (98-107); CREATININE SERUM 0.8 mg/dL (0.7-1.3); GFR1 > 60 mL/min; GLUCOSE SERUM 101 mg/dL (74-106); POTASSIUM SERUM 4.8 mmol/L (3.5-5.1); SODIUM SERUM 138 mmol/L (136-145)
[2018-11-28 14:15] LABS: ALBUMIN 3.9 g/dL (3.4-5.0); ALKALINE PHOSPHATASE 196 U/L (46-116); ALT/SGPT 35 U/L (16-63); AMYLASE 27 U/L (25-115); AST/SGOT 40 U/L (15-37); BILIRUBIN TOTAL 0.64 mg/dL (0.20-1.00); CHOLESTEROL 172 mg/dL (<200); LIPASE 112 IU/L (73-393); MAGNESIUM 2.7 mg/dL (1.8-2.4); T4(THYROXINE) 10.5 ug/dL (4.7-13.3)
[2018-11-28 14:19] LABS: HDL CHOLESTEROL 66 mg/dL (40-60); TOTAL PROTEIN, SERUM 9.3 g/dL (6.4-8.2)
[2018-11-28 16:17] LABS: microscopic required? NO
[2018-11-28 16:37] LABS: UA SPECIFIC GRAVITY >=1.030 (1.005-1.035); urine erythrocyte NEGATIVE (NEGATIVE)
[2018-11-28 16:38] LABS: AMPHETAMINE QUAL UR POSITIVE (See below)
[2018-11-29 16:20] VITALS: BP 113/66
[2018-11-30 06:09] VITALS: BP 104/58
[2018-11-30 07:32] LABS: CALCIUM 8.4 mg/dL (8.5-10.1); CARBON DIOXIDE 27.1 mmol/L (21-32); CHLORIDE SERUM 105 mmol/L (98-107); CREATININE SERUM 0.6 mg/dL (0.7-1.3); GFR1 > 60 mL/min; GLUCOSE SERUM 107 mg/dL (74-106); POTASSIUM SERUM 3.6 mmol/L (3.5-5.1); SODIUM SERUM 139 mmol/L (136-145)
[2018-11-30 08:50] VITALS: BP 110/59
[2018-11-30] MEDS ORDERED: NAPROSYN500 MG PO (13:05)
[2018-11-30 13:34] VITALS: BP 110/59
== END 2018-11-30 14:15 | disposition home or self-care (01) | DRG 773 ==
LOC: ED 12:59 → DU 11-29 12:59 → MU 11-29 12:59 → DU 11-29 15:58 → MU 11-29 15:59
PROVIDERS: Emergency Medicine; ADMIT Internal Medicine
DX: F11.229 Opioid dependence with intoxication, unspecified (principal); N17.0 Acute kidney failure with tubular necrosis; G82.20 Paraplegia, unspecified; F15.129 Other stimulant abuse with intoxication, unspecified; F12.129 Cannabis abuse with intoxication, unspecified; E83.41 Hypermagnesemia; R41.82 Altered mental status, unspecified; R74.0 Nonspecific elevation of levels of transaminase and lactic acid dehydrogenase [LDH]; M25.551 Pain in right hip; G89.29 Other chronic pain; F17.210 Nicotine dependence, cigarettes, uncomplicated; Z68.27 Body mass index [BMI] 27.0-27.9, adult; Z99.3 Dependence on wheelchair
CPT/HCPCS: G0480; J1630; J2060; J7030; Q0092

== ENCOUNTER 2019-03-09 22:34 | Emergency (ER) | payer MEDICAID ==
[~2019-03-09] VITALS: Ht 175.3 cm; Wt 77.1 kg
[~2019-03-09 22:34] MED LIST changes: +NAPROSYN500 MG PO
[2019-03-09 22:40] VITALS: Ht 175.3 cm; Wt 77.1 kg
[2019-03-09 23:43] LABS: BASOPHIL % 0.8 % (0-2); PLATELET COUNT 367 x10^3mcL (130-400); RED CELL DISTRIBUTION WIDTH 14.1 % (11.5-14.5)
[2019-03-10 00:30] LABS: CALCIUM 9.7 mg/dL (8.5-10.1); CARBON DIOXIDE 26.2 mmol/L (21-32); CHLORIDE SERUM 105 mmol/L (98-107); CREATININE SERUM 0.7 mg/dL (0.7-1.3); GFR1 > 60 mL/min; GLUCOSE SERUM 126 mg/dL (74-106); POTASSIUM SERUM 4.4 mmol/L (3.5-5.1); SODIUM SERUM 143 mmol/L (136-145)
[2019-03-10 00:35] LABS: ALBUMIN 3.8 g/dL (3.4-5.0); ALKALINE PHOSPHATASE 148 U/L (46-116); ALT/SGPT 28 U/L (16-63); AST/SGOT 22 U/L (15-37); BILIRUBIN TOTAL 0.3 mg/dL (0.20-1.00)
[2019-03-10 00:45] LABS: TOTAL PROTEIN, SERUM 8.4 g/dL (6.4-8.2)
[2019-03-10 03:13] VITALS: BP 167/90
== END 2019-03-10 03:13 | disposition home or self-care (01) ==
LOC: ED 22:34
PROVIDERS: Emergency Medicine
DX: F14.10 Cocaine abuse, uncomplicated (principal); G89.29 Other chronic pain; M25.551 Pain in right hip; M25.561 Pain in right knee; G82.20 Paraplegia, unspecified; I10 Essential (primary) hypertension; E11.9 Type 2 diabetes mellitus without complications
CPT/HCPCS: 36415; J1885; J2060

== ENCOUNTER 2019-03-10 22:46 | Emergency (ER) | payer MEDICAID ==
[~2019-03-10] VITALS: Ht 175.3 cm; Wt 77.1 kg
[2019-03-10 23:22] VITALS: Ht 175.3 cm; Wt 77.1 kg
== END 2019-03-10 23:58 | disposition left against medical advice (07) ==
LOC: ED 22:46
DX: Z53.21 Procedure and treatment not carried out due to patient leaving prior to being seen by health care provider (principal)